=== PATIENT | female | born 1935 | race American Indian/Alaskan Native ===

== ENCOUNTER 2022-02-06 07:39 | Day surgery (SDC) | payer MEDICARE, OTHER ==
[~2022-02-06 07:39] MED LIST: SODIUM CHLORIDE 0.9% 1000 ML 1,000 ML IV SCH
[2022-02-06] MEDS ORDERED: MIDAZOLAM 2 MG/2 ML INJ ONE (09:18)
[2022-02-06] MEDS ORDERED: MIDAZOLAM 2 MG/2 ML INJ IV ONE (09:21)
--- NOTE | 2022-02-06 09:23 | Anesthesia Day of Surgery ---
Anesthesia Day of Surgery - Day of Surgery Patient Examined: Yes Patient H&P Reviewed: Yes Patient is NPO: Yes Beta Blockers: Yes
--- NOTE | 2022-02-06 09:25 | Anesthesia Consultation ---
Anesthesia Consult and Med Hx Date of service: 02/06/22 - Airway Anesthetic Teeth Evaluation: Chipped (One tooth needs to be pulled) ROM Head & Neck: Adequate Mental/Hyoid Distance: Adequate Mallampati Class: Class II Intubation Access Assessment: Good - Pre-Operative Health Status ASA Pre-Surgery Classification: ASA3 Proposed Anesthetic Plan: MAC (GA if needed) - Pulmonary Hx Smoking: No Hx Sleep Apnea: No - Cardiovascular System Hx Hypertension: Yes (Uncontrolled; pt reports constant pain from fall and white coat HTN also) - Central Nervous System Hx Back Pain: Yes Hx Psychiatric Problems: Yes (Fibromyalgia) - Gastrointestinal Hx Gastroesophageal Reflux Disease: No - Endocrine Hx Liver Disease: Yes (Fatty liver) Hx Non-Insulin Dependent Diabetes: Yes Hx Hypothyroidism: Yes - Hematic Hx Sickle Cell Disease: No
[2022-02-06] MEDS ORDERED: LIDOCAINE MPF (2%) 20 MG/1 ML VIAL 5 ML ONE (09:50)
[2022-02-06] MEDS ORDERED: propofoL 200 MG/20 ML VIAL IV ONE (09:50)
[2022-02-06] MEDS ORDERED: ONDANSETRON 4 MG/2 ML INJ ONE (09:50)
[2022-02-06] MEDS ORDERED: fentaNYL 100 MCG/2 ML INJ ONE (09:50)
[2022-02-06] MEDS ORDERED: hydrALAZINE 20 MG/1 ML INJ ONE (10:13)
--- NOTE | 2022-02-06 10:46 | Procedure Note ---
Date of procedure: 02/06/22 Pre-op diagnosis: Abdominal Pain/ Dysphagia/ R/O Colitis Post-op diagnosis: other (Mild, Benign Esophageal Stenosis (s/p balloon dilation)/ gastritis/ Mild to Moderate Erosive Esophagitis/ Mild Karissa Esophagitis/No colon Polyps/ Few, Left colon diverticuli/ R/O Microscopic colitis) Procedure: EGD with Biopsy and s/p Balloon dilation (20 mm)/ colonoscopy with Biopsy Anesthesia: JOÃO MARTI Surgeon: LIANA FISHER Estimated blood loss: minimal Pathology: list Specimen disposition: to lab Condition: stable Disposition: same day (Treat with Fluconazole and PPI; encourage fiber intake and avoid aspirin ad NSAID for 5 days, otherwise resume previous medication and F/U in 1 to 2 week ([phone]).)
--- NOTE | 2022-02-06 13:20 | Operative Report ---
DATE OF SURGERY: 02/06/2022 PROCEDURE PERFORMED: Colonoscopy with biopsy. INDICATIONS: EGD done prior to the colonoscopy showed some mild Karissa esophagitis as well as mild benign esophageal stenosis, requiring dilation as well as mild to moderate erosive esophagitis and gastritis. DESCRIPTION OF PROCEDURE: Colonoscopy was done after getting informed consent. Initial rectal examination was unremarkable. The instrument was passed through the rectum on to the cecum, which was identified with ileocecal valve and appendiceal orifice. As cecum, ascending colon, transverse colon showed normal mucosa, there were a few minor diverticula noted in the left colon. Random biopsies were done throughout the colon to rule out for microscopic colitis and the rectum did not show any internal hemorrhoid on the retroverted view. ASSESSMENT: Colon polyps screening, abdominal pain, no colon polyps noted, rule out microscopic colitis, a few left colon diverticula, no internal hemorrhoids noted. PLAN: To encourage the patient to take fiber supplements. Avoid aspirin and aspirin-related products for the next few days. Treat the patient with fluconazole because of the EGD findings of mild Karissa esophagitis as well as PPI and have the patient follow up in the office in 1-2 weeks' time. Procedure was done in the GI lab with assistance of the GI lab team, which included the GI nurse, the neurology tech and with assistance of Anesthesia. TID: [id number] RECEIPT: [id number] EVELYNE/DIXIE
--- NOTE | 2022-02-06 13:40 | Operative Report ---
DATE OF SURGERY: 02/06/2022 PROCEDURE: EGD with biopsy and esophageal dilation. INDICATIONS: This is an 86-year-old -[place] female with an underlying history of coronary artery disease. He has lately been complaining of dysphagia. EGD was done to assess for the problem. DESCRIPTION OF PROCEDURE: Procedure was done after getting informed consent with MAC anesthesia. The instrument was passed through the hypopharynx into the esophagus, which showed some mild Karissa esophagitis, which may have contributed to the patient's dysphagia. Photodocumentation and biopsy was obtained from the area that appeared like Karissa esophagitis. In addition, the patient had mild benign esophageal stenosis and she was dilated with a 20 mm balloon at the end of the procedure that was maintained for a minute. Biopsy was also done from the distal esophagus to assess for the severity of the erosive esophagitis. Stomach did not show any gastric ulcers either in the straight or the retroverted view. The pylorus was patent. The duodenum in the first and second portion appeared normal. Biopsy was done from the gastric antrum, gastric body and angular incisura to rule out for H. pylori and atrophic gastritis. There was minimal bleeding associated with the procedure. No complications associated with the procedure. ASSESSMENT: Dysphagia, mild benign esophageal stenosis, status post dilation, mild Karissa esophagitis, [id number] erosive esophagitis, gastritis, no peptic ulcer disease noted. PLAN: Treat the patient with PPI and also give the patient a course of fluconazole. Have the patient avoid aspirin and aspirin-related products for the next few days and follow up in the office in 1-2 weeks' time. A colonoscopy will also be done as part of colon polyp screening and to further assess the patient's abdominal pain. Procedure was done in the GI lab with assistance of the GI lab team, which included the GI nurse, the pathology tech and with assistance of anesthesia. TID: [id number] RECEIPT: [id number] EVELYNE/MARK
--- NOTE | 2022-02-06 14:57 | Post Anesthesia Evaluation ---
- Post Anesthesia Evaluation Patient Participated: Yes Airway Patent: Yes Stable Respiratory Function: Yes Nausea/Vomiting: No Temp > 96.8F: Yes Pain Manageable: Yes Adequeate Hydration: Yes Anesthesia Complications: No Block Receding Appropriately: Not Applicable Patient on Ventilator: No
[2022-02-06 15:25] VITALS: BP 160/70
== END 2022-02-06 18:07 | disposition home or self-care (01) ==
LOC: GIO 07:39
DX: K52.9 Noninfective gastroenteritis and colitis, unspecified (principal); R13.10 Dysphagia, unspecified; K22.2 Esophageal obstruction; K57.30 Diverticulosis of large intestine without perforation or abscess without bleeding; K76.0 Fatty (change of) liver, not elsewhere classified; K29.70 Gastritis, unspecified, without bleeding; I10 Essential (primary) hypertension; E11.9 Type 2 diabetes mellitus without complications; M79.7 Fibromyalgia; E03.9 Hypothyroidism, unspecified; Z91.040 Latex allergy status; Z88.2 Allergy status to sulfonamides; Z88.8 Allergy status to other drugs, medicaments and biological substances; Z79.899 Other long term (current) drug therapy; Z79.4 Long term (current) use of insulin; Z90.49 Acquired absence of other specified parts of digestive tract; Z98.890 Other specified postprocedural states
CPT/HCPCS: 43239; 43249; 45380; 82962; 88305; 88312; 88342; C1726; J0360; J2250; J2405; J2704; J3010; J7030